=== PATIENT | male | born 1995 | race Caucasian/White ===

== ENCOUNTER 2017-11-27 10:33 | Observation (INO) | payer BC, MEDICAID ==
--- NOTE | 2017-11-27 10:50 | ER Document Report ---
ED Medical Screen (RME) - General Chief Complaint: Rectal Abscess Stated Complaint: RECTAL PAIN Time Seen by Provider: 11/27/17 10:45 Notes: The patient is a 22 yo male, no PMD, presents with worsening rectal pain. He was seen at the urgent care center, started on Bactrim and Keflex and told that it do not require drainage yesterday. He is continue to use warm compresses and was told to follow-up today to see if any intervention is needed. Has not had a bowel movement. PE: RRR. Abdomen soft and non-tender. Rectal exam deferred in RME. I have greeted and performed a rapid initial assessment of this patient. A comprehensive ED assessment and evaluation of the patient, analysis of test results and completion of the medical decision making process will be conducted by additional ED providers. - Related Data Allergies/Adverse Reactions: No Known Allergies Allergy (Verified 11/27/17 10:33) Past Medical History - Past Medical History Cardiac Medical History: Denies: Hx Coronary Artery Disease, Hx Heart Attack, Hx Hypertension Pulmonary Medical History: Denies: Hx Asthma, Hx Bronchitis, Hx COPD, Hx Pneumonia Neurological Medical History: Denies: Hx Cerebrovascular Accident, Hx Seizures Musculoskeltal Medical History: Denies Hx Arthritis Past Surgical History: Denies: Hx Pacemaker - Immunizations Hx Diphtheria, Pertussis, Tetanus Vaccination: Yes Physical Exam - Vital signs Vitals: Temp Pulse Resp BP Pulse Ox 98.0 F 93 18 133/84 H 99 11/27/17 10:38 11/27/17 10:38 11/27/17 10:38 11/27/17 10:38 11/27/17 10:38 Course - Vital Signs Vital signs: Temp Pulse Resp BP Pulse Ox 98.0 F 93 18 133/84 H 99 11/27/17 10:38 11/27/17 10:38 11/27/17 10:38 11/27/17 10:38 11/27/17 10:38 Doctor's Discharge - Discharge Referrals: EVARISTO JUDD MD [Primary Care Provider] - Follow up as needed
[2017-11-27] MEDS ORDERED: RINGERS SOLUTION,LACTATED 1,000 ML IV ONE (11:29)
[2017-11-27] MEDS ORDERED: FENTANYL CITRATE INJ/PF 250 MCG/5 ML AMPULE IV ONE (11:32)
[2017-11-27] MEDS ORDERED: CEFTRIAXONE 1 GM/D5W RTU 1 GM/50 ML RTUPB IV ONE (11:32)
[2017-11-27] MEDS ORDERED: FENTANYL CITRATE INJ/PF 100 MCG/2 ML AMPUL IV ONE ×2 (11:37→14:11)
--- NOTE | 2017-11-27 11:37 | ER Document Report ---
ED Skin Rash/Insect Bite/Abscs - General Chief Complaint: Rectal Abscess Stated Complaint: RECTAL PAIN Time Seen by Provider: 11/27/17 10:45 Notes: Patient says that he has had a cyst of his buttock for about 5 days. Is swollen and extremely painful. No drainage yet. Went to an urgent care yesterday and was given sulfa antibiotic and Percocet for pain and told that the lesion was not ready to be drained yet. Patient says the pain is worse and not relieved with Percocet. Has not had a fever. No history of major illness like diabetes. - Related Data Allergies/Adverse Reactions: No Known Allergies Allergy (Verified 11/27/17 10:47) Past Medical History - Social History Smoking Status: Never Smoker Chew tobacco use (# tins/day): No Frequency of alcohol use: Rare Drug Abuse: None Family History: Reviewed & Not Pertinent Patient has suicidal ideation: No Patient has homicidal ideation: No Endocrine Medical History: Denies: Hx Diabetes Mellitus Type 1, Hx Diabetes Mellitus Type 2 Past Surgical History: Reports: Hx Orthopedic Surgery - R hand - Immunizations Hx Diphtheria, Pertussis, Tetanus Vaccination: Yes Review of Systems - Review of Systems Notes: REVIEW OF SYSTEMS: CONSTITUTIONAL : Denies fever. EENT: Denies eye, ear, nose or mouth or throat pain or other symptoms. CARDIOVASCULAR: Denies chest pain. RESPIRATORY: Denies cough, chest congestion, or shortness of breath. GASTROINTESTINAL: Denies abdominal pain or nausea, vomiting, or diarrhea. See HPI regarding swollen tender cyst on right but cheek. GENITOURINARY: Denies difficulty or painful urinating, urinary frequency, blood in urine. MUSCULOSKELETAL: Denies back or neck pain. Denies joint pain or swelling. SKIN: Denies rash or skin lesions. NEUROLOGICAL: Denies LOC or altered mental status. Denies headache. Denies sensory loss or motor deficits. ALL OTHER SYSTEMS REVIEWED AND NEGATIVE. Physical Exam - Vital signs Vitals: Temp Pulse Resp BP Pulse Ox 98.0 F 93 18 133/84 H 99 11/27/17 10:38 11/27/17 10:38 11/27/17 10:38 11/27/17 10:38 11/27/17 10:38 Interpretation: Normal - Notes Notes: PHYSICAL EXAMINATION: GENERAL: Well-appearing, in no acute distress. Appears uncomfortable. Ambulatory. HEAD: Atraumatic, normocephalic. EYES: Pupils equal round and reactive to light, extraocular movements intact. ENT: oropharynx clear without exudates. Moist mucous membranes. NECK: Normal range of motion, supple. LUNGS: Breath sounds clear and equal bilaterally. HEART: Regular rate and rhythm without murmurs. ABDOMEN: Soft, nontender. No guarding or rebound. No masses. Patient has a large swollen erythematous area to the right inner but cheek, a couple of centimeters anterior to the anus. There is central fluctuance that extends towards the anus. Extremely tender to touch. No current drainage. BACK: No tenderness throughout entire back. EXTREMITIES: Normal range of motion without pain. NEUROLOGICAL: Normal speech, normal gait. Normal sensory, motor, and reflex exams. Awake, alert, and oriented x3. Cranial nerves normal. PSYCH: Normal mood, normal affect. SKIN: See HPI. Warm, dry, no rashes. Course - Re-evaluation Re-evalutation: 11/27/17 11:59 Discussed case with surgical list, Dr. Yo, as I am concerned about whether it is appropriate to drain this abscess in the ER versus OR. He will consult on the patient. - Vital Signs Vital signs: Temp Pulse Resp BP Pulse Ox 98.5 F 79 16 149/78 H 98 11/27/17 14:43 11/27/17 14:43 11/27/17 14:43 11/27/17 14:43 11/27/17 14:43 - Laboratory Result Diagrams: 11/27/17 12:05 11/27/17 12:05 Laboratory results interpreted by me: 11/27/17 12:05 WBC 11.2 H Absolute Neutrophils 8.6 H Discharge - Discharge Clinical Impression: right marta-rectal abscess Condition: Stable Disposition: ADMITTED OBSERVATION Admitting Provider: Surgicalist Unit Admitted: OR Referrals: EVARISTO JUDD MD [ACTIVE STAFF] - Follow up as needed
[2017-11-27] MEDS ORDERED: CEFTRIAXONE INJ 1000 MG VIAL IV ONE (11:38)
[2017-11-27 12:28] LABS: ABSOLUTE EOSINOPHILS # (AUTO) 0.1 10^3/uL (0.0-0.6); ABSOLUTE LYMPHOCYTES (AUTO) 1.6 10^3/uL (0.5-4.7); ABSOLUTE MONOCYTES (AUTO) 0.9 10^3/uL (0.1-1.4); ABSOLUTE NEUT (AUTO) 8.6 10^3/uL (1.7-8.2); BASOPHILS % (AUTO) 0.4 % (0-2); EOSINOPHILS % (AUTO) 0.7 % (0-6); HEMATOCRIT 41.1 % (37.9-51.0); HEMOGLOBIN 14.4 g/dL (13.5-17.0); LYMPHOCYTES % (AUTO) 14.1 % (13-45); MEAN CORPUSCULAR HEMOGLOBIN 30.1 pg (27.0-33.4); MEAN CORPUSCULAR HGB CONC 34.9 g/dL (32.0-36.0); MEAN CORPUSCULAR VOLUME 86 fl (80-97); MONOCYTES % (AUTO) 8.4 % (3-13); PLATELET COUNT 195 10^3/uL (150-450); RED BLOOD COUNT 4.77 10^6/uL (4.35-5.55); RED CELL DISTRIBUTION WIDTH 13.2 % (11.5-14.0); SEGMENTED NEUTROPHILS % (AUTO) 76.4 % (42-78); TOTAL CELLS COUNTED % (AUTO) 100 %; WHITE BLOOD COUNT 11.2 10^3/uL (4.0-10.5)
[2017-11-27 12:53] LABS: ALANINE AMINOTRANSFERASE 37 U/L (21-72); ALBUMIN 4.3 g/dL (3.5-5.0); ALKALINE PHOSPHATASE 48 U/L (38-126); ANION GAP 12 (5-19); ASPARTATE AMINO TRANSFERASE 26 U/L (17-59); BILIRUBIN,DIRECT 0.4 mg/dL (0.0-0.4); BILIRUBIN,TOTAL 0.7 mg/dL (0.2-1.3); BLOOD UREA NITROGEN 12 mg/dL (7-20); CALCIUM 9.6 mg/dL (8.4-10.2); CARBON DIOXIDE 30 mmol/L (22-30); CHLORIDE 100 mmol/L (98-107); GLUCOSE 84 mg/dL (75-110); POTASSIUM 4.2 mmol/L (3.6-5.0); SODIUM 142.4 mmol/L (137-145); TOTAL PROTEIN 7.2 g/dL (6.3-8.2)
--- NOTE | 2017-11-27 14:16 | PDOC H&P ---
History of Present Illness Admission Date/PCP: 11/27/17 Patient complains of: Severe right marta-rectal pains History of Present Illness: BLANKA Anna WORKMAN is a 22 year old male who has been c/o marta-rectal pains for 5 days. Yesterday went to an urgent care and was given po antibiotics and told to do hot sitz baths. Told he has an ingrown hair as the cause of infection. Pains worse today and went to ED as suggested by Urgent Care. Past Medical History Cardiac Medical History: Denies: Coronary Artery Disease, Myocardial Infarction, Hypertension Pulmonary Medical History: Denies: Asthma, Bronchitis, Chronic Obstructive Pulmonary Disease (COPD), Pneumonia Neurological Medical History: Denies: Seizures Endocrine Medical History: Denies: Diabetes Mellitus Type 1, Diabetes Mellitus Type 2 Musculoskeltal Medical History: Denies: Arthritis Hematology: Denies: Anemia Past Surgical History Past Surgical History: Reports: Orthopedic Surgery - R hand Denies: Pacemaker Social History Smoking Status: Never Smoker Family History Family History: Reviewed & Not Pertinent Parental Family History Reviewed: Yes Children Family History Reviewed: No Sibling(s) Family History Reviewed.: No Medication/Allergy Home Medications: Oxycodone HCl/Acetaminophen [Percocet 5-325 mg Tablet] 1 tab PO Q6H PRN Sulfamethoxazole/Trimethoprim [Septra-Ds 800-160 mg Tablet] 1 tab PO BID Allergies/Adverse Reactions: No Known Allergies Allergy (Verified 11/27/17 10:47) Review of Systems Constitutional: PRESENT: headache(s) Eyes: PRESENT: other - no visual/hearing changes Cardiovascular: PRESENT: other - no cough/chest pains Gastrointestinal: PRESENT: other - no abdominal pains N/V Genitourinary: PRESENT: other - no dysuria Integumentary: PRESENT: other - cyst right gluteal area Neurological: PRESENT: other - no seizures Hematologic/Lymphatic: PRESENT: other - no easy bruising Physical Exam Vital Signs: Temp Pulse Resp BP Pulse Ox 98.0 F 93 18 133/84 H 100 11/27/17 10:38 11/27/17 10:38 11/27/17 10:38 11/27/17 10:38 11/27/17 12:48 Intake & Output 11/26/17 11/27/17 11/28/17 06:59 06:59 06:59 Weight 87.7 kg General appearance: PRESENT: mild distress Head exam: PRESENT: atraumatic Eye exam: PRESENT: conjunctiva pink Mouth exam: PRESENT: moist Neck exam: PRESENT: full ROM Respiratory exam: PRESENT: clear to auscultation rayna Cardiovascular exam: PRESENT: RRR Pulses: PRESENT: normal radial pulses Vascular exam: PRESENT: normal capillary refill GI/Abdominal exam: PRESENT: soft Rectal exam: PRESENT: other - has a very tender reddish swelling at the right marta-rectal area Extremities exam: PRESENT: full ROM Musculoskeletal exam: PRESENT: ambulatory Neurological exam: PRESENT: alert, oriented to person, oriented to place, oriented to time, oriented to situation Psychiatric exam: PRESENT: appropriate affect Skin exam: PRESENT: normal color, warm Results Laboratory Results: 11/27/17 12:05 11/27/17 12:05 11/27/17 11/27/17 12:05 12:05 WBC 11.2 H RBC 4.77 Hgb 14.4 Hct 41.1 MCV 86 MCH 30.1 MCHC 34.9 RDW 13.2 Plt Count 195 Seg Neutrophils % 76.4 Lymphocytes % 14.1 Monocytes % 8.4 Eosinophils % 0.7 Basophils % 0.4 Absolute Neutrophils 8.6 H Absolute Lymphocytes 1.6 Absolute Monocytes 0.9 Absolute Eosinophils 0.1 Absolute Basophils 0.0 Sodium 142.4 Potassium 4.2 Chloride 100 Carbon Dioxide 30 Anion Gap 12 BUN 12 Creatinine 1.02 Est GFR ( Amer) > 60 Est GFR (Non-Af Amer) > 60 Glucose 84 Calcium 9.6 Total Bilirubin 0.7 AST 26 ALT 37 Alkaline Phosphatase 48 Total Protein 7.2 Albumin 4.3 Assessment & Plan - Diagnosis (1) right marta-rectal abscess Is this a current diagnosis for this admission?: Yes - Time Time Spent: 30 to 50 Minutes - Inpatient Certification Medical Necessity: Need For IV Fluids, Need for Pain Control, Need for IV Antibiotics, Need for Surgery - Plan Summary Plan Summary: IV Fluids IV antibiotics For I&D in the OR today
[2017-11-27] MEDS ORDERED: CIPROFLOXACIN 400 MG/D5W RTU 400 MG/200 ML RTUPB IV ONE (16:41)
[2017-11-27] MEDS ORDERED: METRONIDAZOLE 500 MG/NS RTU 500 MG/100 ML RTUPB IV ONE (16:43)
[2017-11-27] MEDS ORDERED: NORMAL SALINE 1000 ML 1,000 ML IV PRN (16:44)
[2017-11-27] MEDS: HYDROMORPHONE HCL INJ/PF 2 MG/ML AMPULE IV PRN ×2 (17:44→21:29)
[2017-11-27] MEDS ORDERED: ONDANSETRON HCL INJ/PF 4 MG/2 ML SDV IV ONE (21:07)
[2017-11-27] MEDS ORDERED: ONDANSETRON 4 MG TAB.RAPDIS PO ONE (21:23)
[2017-11-27] MEDS ORDERED: KETAMINE HCL INJ 500 MG/10 ML VIAL ONE (23:42)
[2017-11-27] MEDS ORDERED: FENTANYL CITRATE INJ/PF 100 MCG/2 ML AMPUL ONE (23:42)
[2017-11-27] MEDS ORDERED: PROPOFOL INJ 200 MG/20 ML VIAL IV ONE (23:43)
[2017-11-27] MEDS ORDERED: MIDAZOLAM 2 MG/2 ML INJ ONE (23:43)
[2017-11-28] MEDS ORDERED: LIDOCAINE 1%/EPINEPHRINE INJ 20 ML VIAL ONE (00:44)
[2017-11-28] MEDS ORDERED: LIDOCAINE 1% INJ-PF (10 MG/ML) 30 ML SDV ONE (00:45)
[2017-11-28] MEDS ORDERED: LIDOCAINE 2% INJ-PF (20 MG/ML) 10 ML AMPUL ONE (00:46)
[2017-11-28] MEDS ORDERED: FENTANYL CITRATE INJ/PF 100 MCG/2 ML AMPUL IV PRN ×3 (01:22)
[2017-11-28] MEDS ORDERED: DIPHENHYDRAMINE HCL 50 MG/ML VIAL IV PRN (01:22)
[2017-11-28] MEDS ORDERED: PROMETHAZINE HCL INJ 25 MG/1 ML VIAL IV PRN (01:22)
[2017-11-28] MEDS ORDERED: ONDANSETRON HCL INJ/PF 4 MG/2 ML SDV IV PRN (01:22)
--- NOTE | 2017-11-28 03:16 | OPERATIVE REPORT E ---
Operative Report NAME: BLANKA REED : 1995 AGE: 22Y DATE OF SURGERY: 11/28/17 ROOM: 538 PREOPERATIVE DIAGNOSIS: ABSCESS OF THE RIGHT PERIRECTAL AREA. POSTOPERATIVE DIAGNOSIS: ABSCESS OF THE RIGHT PERIRECTAL AREA. OPERATION: Incision and drainage of right perirectal abscess. SURGEON: JASMEET LUCERO M.D. ANESTHESIA: Local, MAC. INDICATION: This is a 22-year-old male who noticed pain in the right perirectal area about 4 to 5 days ago. He went to the Urgent Care Center and then sent to the ED for a possible incision and drainage. DESCRIPTION OF PROCEDURE: After adequate IV sedation, the patient was placed in prone jackknife position and the perirectal area subsequently prepped and draped in the usual sterile fashion. Appropriate time-out was called. Next, local anesthesia infiltrated over the right perirectal abscess site. It appears that it has drained just recently since there is an opening on the mid part of the abscess cavity. After local anesthesia infiltrated, the abscess cavity was incised and cultures obtained. A small amount of pus noted. It was further incised towards the area of the rectum, with a total distance of about 2.5 cm. The cavity appears to be relatively shallow and right at the subcutaneous area and appears to be not involving the rectal side. The cavity was then subsequently pulse lavaged with a liter of saline. After adequate hemostasis noted with the use of cautery, the area was subsequently packed with 1/2-inch Iodoform gauze. The cavity roughly measured 2.5 cm x 1 cm deep x 1 cm wide. Sterile dressings placed over the packing. Needle, instrument, and sponge count were correct and estimated blood loss was about 5 mL. The patient tolerated procedure well and brought to recovery in satisfactory condition. DICTATING PHYSICIAN: JASMEET LUCERO M.D. [id number] PHY#: [id number] ID: [id number] JOB#: [id number] ACCT: [id number] cc:JASMEET LUCERO M.D. >
[2017-11-28] MEDS: HYDROMORPHONE HCL INJ/PF 2 MG/ML AMPULE IV PRN ×3 (03:31→17:25)
[2017-11-28] MEDS: OXYCODONE-ACETAMINOPHEN 5-325 MG TABLET PO PRN ×3 (03:31→12:12)
[2017-11-28] MEDS: METRONIDAZOLE 500 MG/NS RTU 500 MG/100 ML RTUPB IV SCH ×3 (03:31→14:28)
[2017-11-28 06:38] LABS: ABSOLUTE EOSINOPHILS # (AUTO) 0.1 10^3/uL (0.0-0.6); ABSOLUTE LYMPHOCYTES (AUTO) 1.9 10^3/uL (0.5-4.7); ABSOLUTE MONOCYTES (AUTO) 0.9 10^3/uL (0.1-1.4); ABSOLUTE NEUT (AUTO) 7.2 10^3/uL (1.7-8.2); BASOPHILS % (AUTO) 0.4 % (0-2); EOSINOPHILS % (AUTO) 1.3 % (0-6); HEMATOCRIT 39.7 % (37.9-51.0); HEMOGLOBIN 13.8 g/dL (13.5-17.0); LYMPHOCYTES % (AUTO) 18.4 % (13-45); MEAN CORPUSCULAR HEMOGLOBIN 29.7 pg (27.0-33.4); MEAN CORPUSCULAR HGB CONC 34.7 g/dL (32.0-36.0); MEAN CORPUSCULAR VOLUME 86 fl (80-97); MONOCYTES % (AUTO) 9.2 % (3-13); PLATELET COUNT 171 10^3/uL (150-450); RED BLOOD COUNT 4.64 10^6/uL (4.35-5.55); SEGMENTED NEUTROPHILS % (AUTO) 70.7 % (42-78); TOTAL CELLS COUNTED % (AUTO) 100 %; WHITE BLOOD COUNT 10.1 10^3/uL (4.0-10.5)
[2017-11-28] MEDS ORDERED: CEFTRIAXONE 1 GM/D5W RTU 1 GM/50 ML RTUPB IV SCH (10:00)
[2017-11-28] MEDS ORDERED: CEFTRIAXONE SODIUM 1,000 MG in DEXTROSE 5%-WATER 50 ML IV SCH (10:00)
[2017-11-28 16:48] VITALS: BP 105/50
--- NOTE | 2017-11-29 09:05 | DISCHARGE SUMMARY E ---
Discharge Summary NAME: BLANKA REED : 1995 AGE: 22Y ADMITTED: 11/27/2017 DISCHARGED: 11/28/2017 DATE OF PROCEDURE: 11/28/2017 PROCEDURE: Incision and drainage of right perirectal abscess. HOSPITAL COURSE: This is a 22-year-old male who noted pain to the right perirectal area for the past 4 or 5 days. Patient went to ED on 11/27/2017 for severe pain to the right perirectal area after being seen in the urgent care center and referred to the ED. He then underwent incision and drainage of right perirectal abscess under local MAC. The abscess cavity was then packed. The pack was removed today, 11/28/2017, after hot sitz bath. The patient is still complaining of a lot of pain and was given a prescription for Augmentin 500 mg p.o. twice a day for the next 7 days and Percocet 5 mg/325 mg 1 every 6 hours p.r.n. for pain x10. The patient is to continue hot sitz baths at home 4 times a day and to [facility] about 2 weeks. A note was given to the patient to go back to work on 12/09/2017. DICTATING PHYSICIAN: JASMEET LUCERO M.D. [id number] PHY#: [id number] ID: [id number] JOB#: [id number] ACCT: [id number] cc:Elsy BEATTY MD, M.D. JAMES GARRETT, M.D. >
== END 2017-11-28 19:00 | disposition home or self-care (01) ==
LOC: ER 10:33 → EH 17:52 → 5 22:17
PROVIDERS: ATTEND Surgery
PROC: 0D9P3ZX Drainage of Rectum, Percutaneous Approach, Diagnostic (ICD-10-PCS; principal; 2017-11-28)
DX: K61.1 Rectal abscess (principal); R51 Headache
CPT/HCPCS: 46040; 96376; 99284; 96361; 96375; 96365; 96367; 36415 ×2; 87040; 87070; 87205; 85025 ×2; 87075; 87077; 80053; 87186; G0378; A6266; J2250; S0119; J3010; J3490 ×3; J1170 ×2; J0696 ×2; J7030; J7120; J2704; J0744; 902

== ENCOUNTER 2019-01-09 14:34 | Emergency (ER) | payer BC, MEDICAID ==
--- NOTE | 2019-01-09 15:03 | ER Document Report ---
ED Medical Screen (RME) - General Chief Complaint: Bloody Stools Stated Complaint: BLOODY STOOLS Time Seen by Provider: 01/09/19 14:57 Mode of Arrival: Ambulatory Information source: Patient Notes: 23-year-old male presented to ED for complaint of bright red blood in the stool today. He states he has GERD and he takes Zantac every day and occasionally he will see a spot of blood in his stool. He states today he saw blood on the paper when he went to have a bowel movement and it was just a regular normal bowel movement was not constipation. He states he went to the bathroom again later and was still bright red blood on it and then when he went home he still had bright red blood. He is alert oriented respirations regular and unlabored speaking in full sentences walks with even steady gait. He states he called his primary doctor they told him to come to emergency room because another doctor and they told him come to the emergency room so he came to the emergency room. I have greeted and performed a rapid initial assessment of this patient. A comprehensive ED assessment and evaluation of the patient, analysis of test results and completion of medical decision making process will be conducted by an additional ED providers. TRAVEL OUTSIDE OF THE [place] IN LAST 30 DAYS: No - Related Data Allergies/Adverse Reactions: No Known Allergies Allergy (Verified 01/09/19 14:38) Past Medical History - Past Medical History Cardiac Medical History: Denies: Hx Coronary Artery Disease, Hx Heart Attack, Hx Hypertension Pulmonary Medical History: Denies: Hx Asthma, Hx Bronchitis, Hx COPD, Hx Pneumonia Neurological Medical History: Denies: Hx Cerebrovascular Accident, Hx Seizures Endocrine Medical History: Denies: Hx Diabetes Mellitus Type 1, Hx Diabetes Mellitus Type 2 Renal/ Medical History: Denies: Hx Peritoneal Dialysis Musculoskeltal Medical History: Denies Hx Arthritis Past Surgical History: Reports: Hx Orthopedic Surgery - R hand. Denies: Hx Pacemaker - Immunizations Hx Diphtheria, Pertussis, Tetanus Vaccination: Yes Physical Exam - Vital signs Vitals: Temp Pulse Resp BP Pulse Ox 98.2 F 73 16 130/80 H 95 01/09/19 14:42 01/09/19 14:42 01/09/19 14:42 01/09/19 14:42 01/09/19 14:42 Course - Vital Signs Vital signs: Temp Pulse Resp BP Pulse Ox 98.2 F 73 16 130/80 H 95 01/09/19 14:42 01/09/19 14:42 01/09/19 14:42 01/09/19 14:42 01/09/19 14:42
[2019-01-09 15:41] LABS: ABSOLUTE EOSINOPHILS # (AUTO) 0.1 10^3/uL (0.0-0.6); ABSOLUTE MONOCYTES (AUTO) 0.6 10^3/uL (0.1-1.4); ABSOLUTE NEUT (AUTO) 4.9 10^3/uL (1.7-8.2); BASOPHILS % (AUTO) 0.3 % (0-2); HEMATOCRIT 44.9 % (37.9-51.0); HEMOGLOBIN 15.5 g/dL (13.5-17.0); MEAN CORPUSCULAR HEMOGLOBIN 29.7 pg (27.0-33.4); MEAN CORPUSCULAR HGB CONC 34.6 g/dL (32.0-36.0); MEAN CORPUSCULAR VOLUME 86 fl (80-97); MONOCYTES % (AUTO) 8.4 % (3-13); PLATELET COUNT 222 10^3/uL (150-450); RED BLOOD COUNT 5.22 10^6/uL (4.35-5.55); RED CELL DISTRIBUTION WIDTH 13.3 % (11.5-14.0); SEGMENTED NEUTROPHILS % (AUTO) 64.3 % (42-78); TOTAL CELLS COUNTED % (AUTO) 100 %; WHITE BLOOD COUNT 7.6 10^3/uL (4.0-10.5)
[2019-01-09 15:56] LABS: ALKALINE PHOSPHATASE 52 U/L (38-126); ANION GAP 13 (5-19); ASPARTATE AMINO TRANSFERASE 38 U/L (17-59); BILIRUBIN,DIRECT 0.2 mg/dL (0.0-0.4); BILIRUBIN,TOTAL 0.6 mg/dL (0.2-1.3); BLOOD UREA NITROGEN 19 mg/dL (7-20); CALCIUM 10.3 mg/dL (8.4-10.2); CARBON DIOXIDE 30 mmol/L (22-30); CHLORIDE 100 mmol/L (98-107); GLUCOSE 77 mg/dL (75-110); POTASSIUM 4.5 mmol/L (3.6-5.0); TOTAL PROTEIN 7.8 g/dL (6.3-8.2)
[2019-01-09 16:16] LABS: AMORPHOUS SEDIMENT,URINE TRACE /HPF; APPEARANCE,URINE CLOUDY; BILIRUBIN,URINE NEGATIVE (NEGATIVE); COLOR,URINE YELLOW; GLUCOSE, URINE NEGATIVE (NEGATIVE); KETONES,URINE NEGATIVE (NEGATIVE); LEUKOCYTE ESTERASE,URINE NEGATIVE (NEGATIVE); NITRITE,URINE NEGATIVE (NEGATIVE); PROTEIN,URINE NEGATIVE (NEGATIVE); URINE SPECIFIC GRAVITY 1.021; UROBILINOGEN,URINE NEGATIVE mg/dL (<2.0)
--- NOTE | 2019-01-09 18:40 | ER Document Report ---
ED General - General Chief Complaint: Bloody Stools Stated Complaint: BLOODY STOOLS Time Seen by Provider: 01/09/19 14:57 Primary Care Provider: FARZANEH SALCEDO MD [ACTIVE STAFF] - Follow up in 3-5 days (primary care. ) Mode of Arrival: Ambulatory Notes: Patient is a 23-year-old male that presents to the emergency department for chief complaint of rectal bleeding. Patient states that a few times today when he was having a bowel movement, when he wiped there was blood on the toilet chucky r, which was concerning to him, he states he has had spots of blood in the past, but it seemed to be more today so he decided to come to the emergency department to have it checked out. He denies any history of Crohn's disease or ulcerative colitis, denies having any pain associated with this as well. He states he does have GERD and takes Zantac every day, but denies having any upper abdominal p ain, denies any nausea, vomiting or diarrhea. He states he does not get constipated he has a couple bowel movements a day. He does report that he sits on the toilet for 15 to 20 minutes at a time, when he is at work and when he is at home, even after he is done having a bowel movement. He denies any lightheadedness, dizziness, chest pain, shortness of breath or difficulty breathing, no other complaints at this time. Past Medical History: Denies chronic medical conditions Past Surgical History: Incision and drainage of abscess Social History: Denies tobacco, alcohol or drug use. Family History: Reviewed and noncontributory for presenting illness Allergies: Reviewed, see documented allergy list. REVIEW OF SYSTEMS: Other than noted above, the 12 point review of systems was reviewed with the patient and were negative, all pertinent findings are included in the HPI. PHYSICAL EXAMINATION: Vital signs reviewed, nursing noted reviewed. GENERAL: Well-appearing, well-nourished and in no acute distress. HEAD: Atraumatic, normocephalic. EYES: Eyes appear normal, extraocular movements intact, sclera anicteric, conjunctiva are normal. ENT: nares patent, oropharynx clear without exudates. Moist mucous membranes. NECK: Normal range of motion, supple without lymphadenopathy LUNGS: Breath sounds clear to auscultation bilaterally and equal. No wheezes rales or rhonchi. HEART: Regular rate and rhythm without murmurs ABDOMEN: Soft, nontender, normoactive bowel sounds. No rebound, guarding, or rigidity. No masses appreciated. Rectal exam: Patient noted to have what appeared to be an internal hemorrhoid at the 8 o'clock position, no active bleeding at this time. Normal rectal tone. EXTREMITIES: Nontender, good range of motion, no pitting or edema. NEUROLOGICAL: No focal neurological deficits. Moves all extremities spontaneously Motor and sensory grossly intact on exam. PSYCH: Normal mood, normal affect. SKIN: Warm, Dry, normal turgor, no rashes or lesions noted on exposed skin TRAVEL OUTSIDE OF THE [place] IN LAST 30 DAYS: No - Related Data Allergies/Adverse Reactions: No Known Allergies Allergy (Verified 01/09/19 14:38) Past Medical History - General Information source: Patient - Social History Smoking Status: Never Smoker Chew tobacco use (# tins/day): No Frequency of alcohol use: None Family History: Reviewed & Not Pertinent Patient has suicidal ideation: No Patient has homicidal ideation: No - Past Medical History Cardiac Medical History: Denies: Hx Coronary Artery Disease, Hx Heart Attack, Hx Hypertension Pulmonary Medical History: Denies: Hx Asthma, Hx Bronchitis, Hx COPD, Hx Pneumonia Neurological Medical History: Denies: Hx Cerebrovascular Accident, Hx Seizures Endocrine Medical History: Denies: Hx Diabetes Mellitus Type 1, Hx Diabetes Mellitus Type 2 Renal/ Medical History: Denies: Hx Peritoneal Dialysis Musculoskeletal Medical History: Denies Hx Arthritis Past Surgical History: Reports: Hx Orthopedic Surgery - R hand. Denies: Hx Pacemaker - Immunizations Hx Diphtheria, Pertussis, Tetanus Vaccination: Yes Physical Exam - Vital signs Vitals: Temp Pulse Resp BP Pulse Ox 98.2 F 73 16 130/80 H 95 01/09/19 14:42 01/09/19 14:42 01/09/19 14:42 01/09/19 14:42 01/09/19 14:42 Course - Re-evaluation Re-evalutation: Patient seen and examined vital signs reviewed. Laboratory data and/or imaging were ordered as appropriate for the patient's presenting symptoms and complaint, with consideration of any critical or life threatening conditions that may be associated with their obtained history and exam as noted above. Results were reviewed when available and demonstrated unremarkable blood work, no anemia The patient was re-evaluated and was stable Evaluation was most consistent with rectal bleeding, likely hemorrhoidal, stopped at this time, recommend hydrocortisone suppositories, and I discussed with him not sitting on the toilet as long as he has been, as this is likely the cause of his hemorrhoids. Patient was agreeable Results were discussed with the patient at this point, after careful consideration I feel that that patient can be discharged from the emergency department, the patient was educated treatments and reasons to return to the emergency department based on their presumed diagnosis as noted above, they were advised to followup with a primary care physician in 2-3 days. Patient was agreeable to plan of care. *Note is created using voice recognition software and may contain spelling, syntax or grammatical errors. Laboratory 01/09/19 01/09/19 01/09/19 15:13 15:13 15:13 WBC 7.6 RBC 5.22 Hgb 15.5 Hct 44.9 MCV 86 MCH 29.7 MCHC 34.6 RDW 13.3 Plt Count 222 Lymph % (Auto) 26.0 [place] % (Auto) 8.4 Eos % (Auto) 1.0 Baso % (Auto) 0.3 Absolute Neuts (auto) 4.9 Absolute Lymphs (auto) 2.0 Absolute Monos (auto) 0.6 Absolute Eos (auto) 0.1 Absolute Basos (auto) 0.0 Seg Neutrophils % 64.3 Sodium 142.7 Potassium 4.5 Chloride 100 Carbon Dioxide 30 Anion Gap 13 BUN 19 Creatinine 0.98 Est GFR ( Amer) > 60 Est GFR (MDRD) Non-Af > 60 Glucose 77 Calcium 10.3 H Total Bilirubin 0.6 Direct Bilirubin 0.2 Neonat Total Bilirubin Not Reportable Neonat Direct Bilirubin Not Reportable Neonat Indirect Bili Not Reportable AST 38 ALT 49 Alkaline Phosphatase 52 Total Protein 7.8 Albumin 5.0 Urine Color YELLOW Urine Appearance CLOUDY Urine pH 7.0 Ur Specific [place] 1.021 Urine Protein NEGATIVE Urine Glucose (UA) NEGATIVE Urine Ketones NEGATIVE Urine Blood NEGATIVE Urine Nitrite NEGATIVE Urine Bilirubin NEGATIVE Urine Urobilinogen NEGATIVE Ur Leukocyte Esterase NEGATIVE Urine RBC (Auto) 1 Urine Bacteria (Auto) TRACE Squamous Epi Cells Auto <1 Amorphous Sediment Auto TRACE Urine Mucus (Auto) RARE Urine Ascorbic Acid 20 H - Vital Signs Vital signs: Temp Pulse Resp BP Pulse Ox 98.2 F 73 16 130/80 H 95 01/09/19 14:42 01/09/19 14:42 01/09/19 14:42 01/09/19 14:42 01/09/19 14:42 - Laboratory Result Diagrams: 01/09/19 15:13 01/09/19 15:13 Laboratory results interpreted by me: 01/09/19 01/09/19 15:13 15:13 Calcium 10.3 H Urine Ascorbic Acid 20 H Discharge - Discharge Clinical Impression: Rectal bleeding Hemorrhoid Qualifiers: Hemorrhoid type: unspecified Qualified Code(s): K64.9 - Unspecified hemorrhoids Condition: Stable Disposition: HOME, SELF-CARE Instructions: Hemorrhoids (OM) Additional Instructions: Please use the prescribed rectal suppositories to help shrink your hemorrhoids, avoid sitting on the toilet for extended periods of time, as this will reduce the incidence of hemorrhoids. Please follow-up with your primary care physician. Prescriptions: Hydrocortisone Acetate [Anusol Hc 25 mg Supp.rect] 1 supp.rect [place] BID #[id number] supp.rect Referrals: FARZANEH SALCEDO MD [ACTIVE STAFF] - Follow up in 3-5 days (primary care. )
[2019-01-09 19:05] VITALS: BP 143/88
== END 2019-01-09 19:05 | disposition home or self-care (01) ==
LOC: ER 14:34
DX: K64.9 Unspecified hemorrhoids (principal); K62.5 Hemorrhage of anus and rectum; K21.9 Gastro-esophageal reflux disease without esophagitis; Z79.899 Other long term (current) drug therapy
CPT/HCPCS: 36415; 80053; 81001; 85025; 99283